=== PATIENT | male | born 1970 | race Caucasian/White ===

== ENCOUNTER 2019-10-07 09:32 | Day surgery (SDC) | payer BC, OTHER ==
--- NOTE | 2019-10-07 10:14 | EDM.PDOC ---
ED HPI GENERAL MEDICAL PROBLEM - General Chief Complaint: Abdominal Pain Stated Complaint: ABDOMINAL PAIN AND BLOATING Time Seen by Provider: 10/07/19 10:13 - History of Present Illness INITIAL COMMENTS - FREE TEXT/NARRATIVE: 49-year-old male presents the emergency room with abdominal pain. Patient states abdominal pain started this morning fairly severe it woke him up. He cannot recall the exact time. Patient has not had pain like this in the past the pain is mostly right lower quadrant. The patient had difficulty getting in and out of his work truck and determined he could not work so came to the emergency room. He does state that driving here every bump he had caused significant pain in the right lower quadrant. Patient has not had problems like this in the past. He denies fevers or chills. Patient states he has had loose stools for the last month. 1 or 2 daily. He has not noticed any blood. He takes no routine medications and has not been on any recent antibiotics. Right Lower Abdomen Pain Score (Numeric/FACES): 8 - Related Data Allergies Allergy/AdvReac Type Severity Reaction Status Date / Time No Known Allergies Allergy Verified 10/07/19 09:51 Home Meds: Home Meds . [No Known Home Meds] 10/07/19 [History] Past Medical History - Past Health History Medical/Surgical History: Denies Medical/Surgical History Social & Family History - Tobacco Use Smoking Status *Q: Never Smoker - Caffeine Use Caffeine Use: Reports: None ED ROS GENERAL - Review of Systems Review Of Systems: See Below Constitutional: Reports: No Symptoms. Denies: Fever, Chills HEENT: Reports: No Symptoms Respiratory: Reports: No Symptoms Cardiovascular: Reports: No Symptoms Endocrine: Reports: No Symptoms GI/Abdominal: Reports: Abdominal Pain, Diarrhea (1 or 2 loose stools daily for the last month). Denies: Anorexia, Black Stool, Bloody Stool : Reports: No Symptoms Musculoskeletal: Reports: No Symptoms Skin: Reports: No Symptoms Neurological: Reports: No Symptoms ED EXAM, GI/ABD - Physical Exam Exam: See Below Exam Limited By: No Limitations General Appearance: Alert, No Apparent Distress Head: Atraumatic, Normocephalic Neck: Normal Inspection, Supple, Non-Tender, Full Range of Motion Respiratory/Chest: No Respiratory Distress, Lungs Clear, Normal Breath Sounds Cardiovascular: Regular Rate, Rhythm, No Edema, No Murmur GI/Abdominal Exam: Normal Bowel Sounds, Soft, Rebound, Tender (With generalized palpation the patient has significant right lower quadrant discomfort with palpation over the left lower quadrant the patient still feels discomfort in the right lower quadrant. The patient has positive rebound tenderness.) (Male) Exam: No Hernia, Normal Inspection. No: Circumcised, Scrotum Tenderness (L), Scrotum Tenderness (R) Back Exam: Normal Inspection. No: CVA Tenderness (L), CVA Tenderness (R) Extremities: Normal Inspection, No Pedal Edema Neurological: Alert, Oriented, Normal Cognition Course - Vital Signs Last Recorded V/S: Last Vital Signs Temp 36.6 C 10/07/19 09:49 Pulse 90 10/07/19 09:49 Resp 18 10/07/19 09:49 BP 134/89 10/07/19 09:49 Pulse Ox 97 10/07/19 09:49 - Orders/Labs/Meds Orders: Active Orders 24 hr Category Date Time Status Patient Status [ADT] Routine ADT 10/07/19 14:24 Active Sodium Chloride 0.9% [Normal Saline] 1,000 ml Med 10/07/19 10:45 Active IV ASDIRECTED Sodium Chloride 0.9% [Saline Flush] Med 10/07/19 10:47 Active 10 ml FLUSH ONETIME PRN cefTRIAXone [Rocephin] 2 gm Med 10/07/19 12:00 Active Sodium Chloride 0.9% [Normal Saline] 100 ml IV Q24H Schedule Procedure [COMM] Stat Oth 10/07/19 14:25 Ordered Medication Orders Sodium Chloride (Normal Saline) 1,000 mls @ 150 mls/hr IV ASDIRECTED DWAINE Ceftriaxone Sodium 2 gm/ (Sodium Chloride) 100 mls @ 200 mls/hr IV Q24H DWAINE Last Admin: 10/07/19 12:23 Dose: 200 mls/hr Documented by: ELDA Sodium Chloride (Saline Flush) 10 ml FLUSH ONETIME PRN PRN Reason: IV FLUSH Last Admin: 10/07/19 10:57 Dose: 10 ml Documented by: JO ANN Labs: Laboratory Tests 10/07/19 10/07/19 10/07/19 Range/Units 10:15 10:15 10:30 WBC 11.09 H (4.23-9.07) K/mm3 RBC 5.49 (4.63-6.08) M/mm3 Hgb 16.0 (13.7-17.5) gm/dl Hct 45.2 (40.1-51.0) % MCV 82.3 (79.0-92.2) fl MCH 29.1 (25.7-32.2) pg MCHC 35.4 (32.2-35.5) g/dl RDW Std Deviation 41.9 (35.1-43.9) fL Plt Count 240 (163-337) K/mm3 MPV 9.9 (9.4-12.3) fl Neut % (Auto) 75.0 H (34.0-67.9) % Lymph % (Auto) 12.9 L (21.8-53.1) % [place] % (Auto) 11.2 (5.3-12.2) % Eos % (Auto) 0.4 L (0.8-7.0) Baso % (Auto) 0.3 (0.1-1.2) % Neut # (Auto) 8.33 H (1.78-5.38) K/mm3 Lymph # (Auto) 1.43 (1.32-3.57) K/mm3 [place] # (Auto) 1.24 H (0.30-0.82) K/mm3 Eos # (Auto) 0.04 (0.04-0.54) K/mm3 Baso # (Auto) 0.03 (0.01-0.08) K/mm3 Manual Slide Review Abnormal smear Sodium 139 (136-145) mEq/L Potassium 4.1 (3.5-5.1) mEq/L Chloride 103 (98-107) mEq/L Carbon Dioxide 28 (21-32) mEq/L Anion Gap 12.1 (5-15) BUN 26 H (7-18) mg/dL Creatinine 1.3 (0.7-1.3) mg/dL Est Cr Clr Drug Dosing 63.39 mL/min Estimated GFR (MDRD) 59 (>60) mL/min BUN/Creatinine Ratio 20.0 H (14-18) Glucose 101 (74-106) mg/dL Calcium 9.1 (8.5-10.1) mg/dL Total Bilirubin 1.2 H (0.2-1.0) mg/dL AST 29 (15-37) U/L ALT 56 (16-63) U/L Alkaline Phosphatase 60 (46-116) U/L Total Protein 7.4 (6.4-8.2) g/dl Albumin 4.0 (3.4-5.0) g/dl Globulin 3.4 gm/dL Albumin/Globulin Ratio 1.2 (1-2) Lipase 70 L (73-393) U/L Urine Color Yellow (Yellow) Urine Appearance Clear (Clear) Urine pH 5.5 (5.0-8.0) Ur Specific [place] > or = 1.030 (1.005-1.030) Urine Protein Negative (Negative) Urine Glucose (UA) Negative (Negative) Urine Ketones Negative (Negative) Urine Occult Blood Negative (Negative) Urine Nitrite Negative (Negative) Urine Bilirubin Negative (Negative) Urine Urobilinogen 0.2 (0.2-1.0) Ur Leukocyte Esterase Negative (Negative) SARS Virus RNA (PCR) (NEGATIVE) 10/07/19 Range/Units 12:45 WBC (4.23-9.07) K/mm3 RBC (4.63-6.08) M/mm3 Hgb (13.7-17.5) gm/dl Hct (40.1-51.0) % MCV (79.0-92.2) fl MCH (25.7-32.2) pg MCHC (32.2-35.5) g/dl RDW Std Deviation (35.1-43.9) fL Plt Count (163-337) K/mm3 MPV (9.4-12.3) fl Neut % (Auto) (34.0-67.9) % Lymph % (Auto) (21.8-53.1) % [place] % (Auto) (5.3-12.2) % Eos % (Auto) (0.8-7.0) Baso % (Auto) (0.1-1.2) % Neut # (Auto) (1.78-5.38) K/mm3 Lymph # (Auto) (1.32-3.57) K/mm3 [place] # (Auto) (0.30-0.82) K/mm3 Eos # (Auto) (0.04-0.54) K/mm3 Baso # (Auto) (0.01-0.08) K/mm3 Manual Slide Review Sodium (136-145) mEq/L Potassium (3.5-5.1) mEq/L Chloride (98-107) mEq/L Carbon Dioxide (21-32) mEq/L Anion Gap (5-15) BUN (7-18) mg/dL Creatinine (0.7-1.3) mg/dL Est Cr Clr Drug Dosing mL/min Estimated GFR (MDRD) (>60) mL/min BUN/Creatinine Ratio (14-18) Glucose (74-106) mg/dL Calcium (8.5-10.1) mg/dL Total Bilirubin (0.2-1.0) mg/dL AST (15-37) U/L ALT (16-63) U/L Alkaline Phosphatase (46-116) U/L Total Protein (6.4-8.2) g/dl Albumin (3.4-5.0) g/dl Globulin gm/dL Albumin/Globulin Ratio (1-2) Lipase (73-393) U/L Urine Color (Yellow) Urine Appearance (Clear) Urine pH (5.0-8.0) Ur Specific [place] (1.005-1.030) Urine Protein (Negative) Urine Glucose (UA) (Negative) Urine Ketones (Negative) Urine Occult Blood (Negative) Urine Nitrite (Negative) Urine Bilirubin (Negative) Urine Urobilinogen (0.2-1.0) Ur Leukocyte Esterase (Negative) SARS Virus RNA (PCR) Negative (NEGATIVE) Meds: Medications Generic Name Dose Route Start Last Admin Trade Name Freq PRN Reason Stop Dose Admin Sodium Chloride 1,000 mls @ 150 mls/hr 10/07/19 10:45 Normal Saline IV ASDIRECTED DWAINE Ceftriaxone Sodium 2 gm/ 100 mls @ 200 mls/hr 10/07/19 12:00 10/07/19 12:23 Sodium Chloride IV 200 mls/hr Q24H DWAINE Administration Sodium Chloride 10 ml 10/07/19 10:47 10/07/19 10:57 Saline Flush FLUSH 10 ml ONETIME PRN Administration IV FLUSH Discontinued Medications Generic Name Dose Route Start Last Admin Trade Name Freq PRN Reason Stop Dose Admin Bupivacaine HCl/Epinephrine Bitart Confirm 10/07/19 13:57 Marcaine 0.5%/Epinephrine 1:200,000 Administered 10/07/19 13:58 Dose 50 ml .ROUTE .STK-MED ONE Fentanyl Confirm 10/07/19 14:32 Sublimaze Administered 10/07/19 14:33 Dose 250 mcg .ROUTE .STK-MED ONE Hydromorphone HCl 0.5 mg 10/07/19 13:19 10/07/19 13:37 Dilaudid IVPUSH 10/07/19 13:20 0.5 mg ONETIME ONE Administration Sodium Chloride 500 mls @ 999 mls/hr 10/07/19 10:36 10/07/19 11:26 Normal Saline IV 10/07/19 11:06 999 mls/hr .BOLUS ONE Administration Metronidazole 500 mg/ Premix 100 mls @ 100 mls/hr 10/07/19 11:55 10/07/19 13:15 IV 10/07/19 12:54 100 mls/hr ONETIME ONE Administration Lidocaine HCl Confirm 10/07/19 14:32 Xylocaine-Mpf 1% Administered 10/07/19 14:33 Dose 4 mls @ as directed .ROUTE .STK-MED ONE Iopamidol 50 ml 10/07/19 10:47 10/07/19 10:57 Isovue-300 (61%) IVPUSH 10/07/19 10:48 50 ml ONETIME ONE Administration Iopamidol 100 ml 10/07/19 10:47 10/07/19 10:57 Isovue-300 (61%) IVPUSH 10/07/19 10:48 100 ml ONETIME ONE Administration Lidocaine/Epinephrine Confirm 10/07/19 13:56 Xylocaine 1% With Epinephrine 1:100,000 Administered 10/07/19 13:57 Dose 40 ml .ROUTE .STK-MED ONE Midazolam HCl Confirm 10/07/19 14:32 Versed 1 Mg/Ml Administered 10/07/19 14:33 Dose 2 mg .ROUTE .STK-MED ONE Ondansetron HCl Confirm 10/07/19 14:31 Zofran Administered 10/07/19 14:32 Dose 4 mg .ROUTE .STK-MED ONE Propofol Confirm 10/07/19 14:32 Diprivan 20 Ml Administered 10/07/19 14:33 Dose 200 mg .ROUTE .STK-MED ONE Rocuronium [place] Confirm 10/07/19 14:31 Zemuron Administered 10/07/19 14:32 Dose 50 mg .ROUTE .STK-MED ONE - Re-Assessments/Exams Free Text/Narrative Re-Assessment/Exam: 10/07/19 11:[address] is suggestive of a very early appendicitis. I called Dr. Chu who is in surgery but will be able to return my call in approximately 30 minutes. 10/07/19 11:[address] Chu, will anticipate surgery around 3 PM will start Rocephin 2 g and Flagyl 500 mg IV in addition to IV fluids Departure - Departure Time of Disposition: 13:00 Disposition: DC/Tfer to [facility] Clinical Impression: Appendicitis - Discharge Information Sepsis Event Note (ED) - Evaluation Sepsis Screening Result: No Definite Risk - Focused Exam Vital Signs: Vital Signs Temp Pulse Resp BP Pulse Ox 10/07/19 09:49 36.6 C 90 18 134/89 97 - My Orders Last 24 Hours: My Active Orders 10/07/19 10:45 Sodium Chloride 0.9% [Normal Saline] 1,000 ml IV ASDIRECTED 10/07/19 10:47 Sodium Chloride 0.9% [Saline Flush] 10 ml FLUSH ONETIME PRN 10/07/19 12:00 cefTRIAXone [Rocephin] 2 gm Sodium Chloride 0.9% [Normal Saline] 100 ml IV Q24H - Assessment/Plan Last 24 Hours: My Active Orders 10/07/19 10:45 Sodium Chloride 0.9% [Normal Saline] 1,000 ml IV ASDIRECTED 10/07/19 10:47 Sodium Chloride 0.9% [Saline Flush] 10 ml FLUSH ONETIME PRN 10/07/19 12:00 cefTRIAXone [Rocephin] 2 gm Sodium Chloride 0.9% [Normal Saline] 100 ml IV Q24H
[2019-10-07] MEDS ORDERED: Sodium Chloride 0.9% 500 ML IV ONE (10:36)
[2019-10-07] MEDS ORDERED: Sodium Chloride 0.9% 1,000 ML IV SCH (10:45)
[2019-10-07] MEDS ORDERED: Sodium Chloride 0.9% 10 ML Syringe FLUSH PRN (10:47)
[2019-10-07] MEDS ORDERED: Iopamidol 612 MG/ML 50 ML SDV IVPUSH ONE (10:47)
[2019-10-07] MEDS ORDERED: Iopamidol 612 MG/ML 100 ML Bottle IVPUSH ONE (10:47)
--- NOTE | 2019-10-07 11:16 | CT ---
CT abdomen and pelvis Technique: Multiple axial sections were obtained from above the dome of the diaphragm inferiorly through the pubic symphysis. Intravenous contrast was utilized. No oral contrast has been given. Delayed images were obtained to the bladder. Findings: Visualized lung bases show nothing acute. Liver contains no focal parenchymal abnormality. Gallbladder contains no calcified gallstones. Spleen appears normal. Adrenal glands show no nodule. Pancreas is within normal limits. Kidney show symmetric contrast enhancement without hydronephrosis or mass. Aorta shows no aneurysm. No retroperitoneal adenopathy or mesenteric abnormalities are seen. Appendix shows a small calcified appendicolith at the base. Appendix shows some slight wall enhancement with minimal surrounding inflammatory change. No pelvic mass or adenopathy is seen. No free fluid is seen. Delayed images shows contrast within the distal ureters and within the bladder. Bone window settings were reviewed which appear within normal limits for the patient's age. Old fracture is noted within the articular mass at L3 on both sides. Impression: 1. Slightly abnormal appendix suggesting very early appendicitis. Please correlate if this matches patient's clinical and laboratory findings. 2. Other findings as noted above. 3. No additional acute abnormality is appreciated on CT study of the abdomen and pelvis. Diagnostic code #5 This report was dictated in MDT
[2019-10-07] MEDS ORDERED: metroNIDAZOLE/Normal Saline 500 MG in Premix Bag 1 BAG IV ONE (11:55)
[2019-10-07] MEDS ORDERED: cefTRIAXone 2 GM in Sodium Chloride 0.9% 100 ML IV SCH (12:00)
--- NOTE | 2019-10-07 13:03 | PCM.PREANE ---
Preanesthetic Assessment - Procedure Proposed Procedure: laparoscopic appendectomy - Anesthesia/Transfusion/Family Hx Anesthesia History: Prior Anesthesia Without Reaction Family History of Anesthesia Reaction: No Transfusion History: No Prior Transfusion(s) - Review of Systems General: Fatigue, Malaise Pulmonary: No Symptoms Cardiovascular: No Symptoms Gastrointestinal: Abdominal Pain (RLQ) Neurological: No Symptoms Other: Reports: None - Physical Assessment NPO Status Date: 10/06/19 NPO Status Time: 18:00 Vital Signs: Last Vital Signs Temp 36.6 C 10/07/19 09:49 Pulse 90 10/07/19 09:49 Resp 18 10/07/19 09:49 BP 134/89 10/07/19 09:49 Pulse Ox 97 10/07/19 09:49 Height: 1.68 m Weight: 99.79 kg ASA Class: 2 Mental Status: Alert & Oriented x3 Dentition: Reports: Dentures Thyro-Mental Finger Breadths: 2 Mouth Opening Finger Breadths: 2 ROM/Head Extension: Full Lungs: Clear to Auscultation, Normal Respiratory Effort Cardiovascular: Regular Rate, Regular Rhythm - Lab Values: Laboratory Last Values WBC 11.09 K/mm3 (4.23-9.07) H 10/07/19 10:15 RBC 5.49 M/mm3 (4.63-6.08) 10/07/19 10:15 Hgb 16.0 gm/dl (13.7-17.5) 10/07/19 10:15 Hct 45.2 % (40.1-51.0) 10/07/19 10:15 MCV 82.3 fl (79.0-92.2) 10/07/19 10:15 MCH 29.1 pg (25.7-32.2) 10/07/19 10:15 MCHC 35.4 g/dl (32.2-35.5) 10/07/19 10:15 RDW Std Deviation 41.9 fL (35.1-43.9) 10/07/19 10:15 Plt Count 240 K/mm3 (163-337) 10/07/19 10:15 MPV 9.9 fl (9.4-12.3) 10/07/19 10:15 Neut % (Auto) 75.0 % (34.0-67.9) H 10/07/19 10:15 Lymph % (Auto) 12.9 % (21.8-53.1) L 10/07/19 10:15 [place] % (Auto) 11.2 % (5.3-12.2) 10/07/19 10:15 Eos % (Auto) 0.4 (0.8-7.0) L 10/07/19 10:15 Baso % (Auto) 0.3 % (0.1-1.2) 10/07/19 10:15 Neut # (Auto) 8.33 K/mm3 (1.78-5.38) H 10/07/19 10:15 Lymph # (Auto) 1.43 K/mm3 (1.32-3.57) 10/07/19 10:15 [place] # (Auto) 1.24 K/mm3 (0.30-0.82) H 10/07/19 10:15 Eos # (Auto) 0.04 K/mm3 (0.04-0.54) 10/07/19 10:15 Baso # (Auto) 0.03 K/mm3 (0.01-0.08) 10/07/19 10:15 Manual Slide Review Abnormal smear 10/07/19 10:15 Sodium 139 mEq/L (136-145) 10/07/19 10:15 Potassium 4.1 mEq/L (3.5-5.1) 10/07/19 10:15 Chloride 103 mEq/L (98-107) 10/07/19 10:15 Carbon Dioxide 28 mEq/L (21-32) 10/07/19 10:15 Anion Gap 12.1 (5-15) 10/07/19 10:15 BUN 26 mg/dL (7-18) H 10/07/19 10:15 Creatinine 1.3 mg/dL (0.7-1.3) 10/07/19 10:15 Est Cr Clr Drug Dosing 63.39 mL/min 10/07/19 10:15 Estimated GFR (MDRD) 59 mL/min (>60) 10/07/19 10:15 BUN/Creatinine Ratio 20.0 (14-18) H 10/07/19 10:15 Glucose 101 mg/dL (74-106) 10/07/19 10:15 Calcium 9.1 mg/dL (8.5-10.1) 10/07/19 10:15 Total Bilirubin 1.2 mg/dL (0.2-1.0) H 10/07/19 10:15 AST 29 U/L (15-37) 10/07/19 10:15 ALT 56 U/L (16-63) 10/07/19 10:15 Alkaline Phosphatase 60 U/L (46-116) 10/07/19 10:15 Total Protein 7.4 g/dl (6.4-8.2) 10/07/19 10:15 Albumin 4.0 g/dl (3.4-5.0) 10/07/19 10:15 Globulin 3.4 gm/dL 10/07/19 10:15 Albumin/Globulin Ratio 1.2 (1-2) 10/07/19 10:15 Lipase 70 U/L (73-393) L 10/07/19 10:15 Urine Color Yellow (Yellow) 10/07/19 10:30 Urine Appearance Clear (Clear) 10/07/19 10:30 Urine pH 5.5 (5.0-8.0) 10/07/19 10:30 Ur Specific [place] > or = 1.030 (1.005-1.030) 10/07/19 10:30 Urine Protein Negative (Negative) 10/07/19 10:30 Urine Glucose (UA) Negative (Negative) 10/07/19 10:30 Urine Ketones Negative (Negative) 10/07/19 10:30 Urine Occult Blood Negative (Negative) 10/07/19 10:30 Urine Nitrite Negative (Negative) 10/07/19 10:30 Urine Bilirubin Negative (Negative) 10/07/19 10:30 Urine Urobilinogen 0.2 (0.2-1.0) 10/07/19 10:30 Ur Leukocyte Esterase Negative (Negative) 10/07/19 10:30 - Allergies Allergies/Adverse Reactions: Allergies Allergy/AdvReac Type Severity Reaction Status Date / Time No Known Allergies Allergy Verified 10/07/19 09:51 - Blood Blood Available: No Product(s) Available: None - Anesthesia Plan Pre-Op Medication Ordered: None - Acknowledgements Anesthesia Type Planned: General Anesthesia Pt an Appropriate Candidate for the Planned Anesthesia: Yes Alternatives and Risks of Anesthesia Discussed w Pt/Guardian: Yes Pt/Guardian Understands and Agrees with Anesthesia Plan: Yes PreAnesthesia Questionnaire - Past Health History Medical/Surgical History: Denies Medical/Surgical History - SUBSTANCE USE Smoking Status *Q: Never Smoker Tobacco Use Within Last Twelve Months: No Second Hand Smoke Exposure: No Days Per Week of Alcohol Use: 0 Number of Drinks Per Day: 0 Total Drinks Per Week: 0 Recreational Drug Use History: No - HOME MEDS Home Medications: Home Meds . [No Known Home Meds] 10/07/19 [History] - CURRENT (IN HOUSE) MEDS Current Meds: Current Medications Sodium Chloride (Normal Saline) 1,000 mls @ 150 mls/hr IV ASDIRECTED [facility] Ceftriaxone Sodium 2 gm/ (Sodium Chloride) 100 mls @ 200 mls/hr IV Q24H DWAINE Last Admin: 10/07/19 12:23 Dose: 200 mls/hr Documented by: Sodium Chloride (Saline Flush) 10 ml FLUSH ONETIME PRN PRN Reason: IV FLUSH Last Admin: 10/07/19 10:57 Dose: 10 ml Documented by: Discontinued Medications Sodium Chloride (Normal Saline) 500 mls @ 999 mls/hr IV .BOLUS ONE Stop: 10/07/19 11:06 Last Admin: 10/07/19 11:26 Dose: 999 mls/hr Documented by: Metronidazole 500 mg/ Premix 100 mls @ 100 mls/hr IV ONETIME ONE Stop: 10/07/19 12:54 Iopamidol (Isovue-300 (61%)) 50 ml IVPUSH ONETIME ONE Stop: 10/07/19 10:48 Last Admin: 10/07/19 10:57 Dose: 50 ml Documented by: Iopamidol (Isovue-300 (61%)) 100 ml IVPUSH ONETIME ONE Stop: 10/07/19 10:48 Last Admin: 10/07/19 10:57 Dose: 100 ml Documented by:
[2019-10-07] MEDS ORDERED: HYDROmorphone 0.5 MG/0.5 ML Syringe IVPUSH ONE (13:19)
[2019-10-07] MEDS ORDERED: Lidocaine 1% with EPINEPHrine 1:100,000 20 ML MDV ONE (13:56)
[2019-10-07] MEDS ORDERED: Bupivacaine 0.5%/EPINEPHrine 1:200,000 50 ML MDV ONE (13:57)
[2019-10-07] MEDS ORDERED: Ondansetron 4 MG/2 ML SDV ONE (14:31)
[2019-10-07] MEDS ORDERED: Rocuronium 50 MG/5 ML Vial ONE (14:31)
[2019-10-07] MEDS ORDERED: Propofol 200 MG/20 ML SDV ONE (14:32)
[2019-10-07] MEDS ORDERED: Lidocaine 1% 4 ML ONE (14:32)
[2019-10-07] MEDS ORDERED: Midazolam 1 MG/ML 2 ML SDV ONE (14:32)
[2019-10-07] MEDS ORDERED: fentaNYL 250 MCG/5 ML SDV ONE ×2 (14:32→15:46)
[2019-10-07] MEDS ORDERED: HYDROmorphone 0.5 MG/0.5 ML Syringe ONE ×2 (15:35)
[2019-10-07] MEDS ORDERED: Lactated Ringers 1,000 ML ONE (16:01)
--- NOTE | 2019-10-07 16:19 | PCM.OPNOTE ---
- General Post-Op/Procedure Note Date of Surgery/Procedure: 10/07/19 Operative Procedure(s): Laparoscopic appendectomy Findings: acute appendicitis Pre Op Diagnosis: acute appendicitis Post-Op Diagnosis: same Anesthesia Technique: General ET Tube Primary Surgeon: Sruthi Griffith Anesthesia Provider: Darryn Garces Pathology: appendix Fluid Replacement, Intraop: 1,200 Output, Urine Amount: 0 EBL in mLs: 5 Complications: none apparent Condition: Good
--- NOTE | 2019-10-07 16:24 | PCM.HP.2 ---
H&P History of Present Illness - General Date of Service: 10/07/19 Admit Problem/Dx: Admission Diagnosis/Problem Admission Diagnosis/Problem Appendectomy Source of Information: Patient, Provider History Limitations: Reports: No Limitations - History of Present Illness Initial Comments - Free Text/Narative: The patient is a 49-year-old male presents to emergency department complaining of right lower quadrant pain for 1 day. Reports noting the pain this morning. He thought he had a pulled muscle, but realized that the pain is not emanating from the groin. In addition when the pain did not subside, he knew that he needed to seek treatment. He reports decreased appetite. He has had diarrhea recently from dietary changes. He has not noticed any hematochezia or melena. In the emergency department the patient had laboratory evaluation which revealed WBC 11K, as well as a CT abdomen pelvis which showed inflammation around the appendix as well as an appendicolith. Right Lower Abdomen Pain Score (Numeric/FACES): 8 - Related Data Allergies/Adverse Reactions: Allergies Allergy/AdvReac Type Severity Reaction Status Date / Time No Known Allergies Allergy Verified 10/07/19 09:51 Home Medications: Home Meds . [No Known Home Meds] 10/07/19 [History] Past Medical History - Past Health History Medical/Surgical History: Denies Medical/Surgical History Social & Family History - Family History Cardiac: Reports: High Cholesterol, Hypertension, PA Oncologic: Denies: Colon - Tobacco Use Smoking Status *Q: Never Smoker Second Hand Smoke Exposure: No - Caffeine Use Caffeine Use: Reports: None - Alcohol Use Days Per Week of Alcohol Use: 0 Number of Drinks Per Day: 0 Total Drinks Per Week: 0 - Recreational Drug Use Recreational Drug Use: No H&P Review of Systems - Review of Systems: Review Of Systems: See Below General: Reports: Decreased Appetite HEENT: Reports: No Symptoms Pulmonary: Reports: No Symptoms Cardiovascular: Reports: No Symptoms Gastrointestinal: Reports: Abdominal Pain Genitourinary: Reports: No Symptoms Musculoskeletal: Reports: No Symptoms Skin: Reports: No Symptoms Neurological: Reports: No Symptoms Hematologic/Lymphatic: Reports: No Symptoms Exam - Exam Exam: See Below - Vital Signs Vital Signs: Last Vital Signs Temp 36.6 C 10/07/19 09:49 Pulse 90 10/07/19 09:49 Resp 18 10/07/19 09:49 BP 134/89 10/07/19 09:49 Pulse Ox 97 10/07/19 09:49 Weight: 99.79 kg - Exam Quality Assessment: No: Supplemental Oxygen General: Alert, Oriented HEENT: Conjunctiva Clear, EOMI Neck: Supple Lungs: Normal Respiratory Effort Cardiovascular: Regular Rate, Regular Rhythm GI/Abdominal Exam: Soft, No Distention, Guarding (Isolated in the right lower quadrant), Rebound (And right lower quadrant) - Patient Data Lab Results Last 24 hrs: Laboratory Results - last 24 hr 10/07/19 10/07/19 10/07/19 Range/Units 10:15 10:15 10:30 WBC 11.09 H (4.23-9.07) K/mm3 RBC 5.49 (4.63-6.08) M/mm3 Hgb 16.0 (13.7-17.5) gm/dl Hct 45.2 (40.1-51.0) % MCV 82.3 (79.0-92.2) fl MCH 29.1 (25.7-32.2) pg MCHC 35.4 (32.2-35.5) g/dl RDW Std Deviation 41.9 (35.1-43.9) fL Plt Count 240 (163-337) K/mm3 MPV 9.9 (9.4-12.3) fl Neut % (Auto) 75.0 H (34.0-67.9) % Lymph % (Auto) 12.9 L (21.8-53.1) % Dorado % (Auto) 11.2 (5.3-12.2) % Eos % (Auto) 0.4 L (0.8-7.0) Baso % (Auto) 0.3 (0.1-1.2) % Neut # (Auto) 8.33 H (1.78-5.38) K/mm3 Lymph # (Auto) 1.43 (1.32-3.57) K/mm3 Dorado # (Auto) 1.24 H (0.30-0.82) K/mm3 Eos # (Auto) 0.04 (0.04-0.54) K/mm3 Baso # (Auto) 0.03 (0.01-0.08) K/mm3 Manual Slide Review Abnormal smear Sodium 139 (136-145) mEq/L Potassium 4.1 (3.5-5.1) mEq/L Chloride 103 (98-107) mEq/L Carbon Dioxide 28 (21-32) mEq/L Anion Gap 12.1 (5-15) BUN 26 H (7-18) mg/dL Creatinine 1.3 (0.7-1.3) mg/dL Est Cr Clr Drug Dosing 63.39 mL/min Estimated GFR (MDRD) 59 (>60) mL/min BUN/Creatinine Ratio 20.0 H (14-18) Glucose 101 (74-106) mg/dL Calcium 9.1 (8.5-10.1) mg/dL Total Bilirubin 1.2 H (0.2-1.0) mg/dL AST 29 (15-37) U/L ALT 56 (16-63) U/L Alkaline Phosphatase 60 (46-116) U/L Total Protein 7.4 (6.4-8.2) g/dl Albumin 4.0 (3.4-5.0) g/dl Globulin 3.4 gm/dL Albumin/Globulin Ratio 1.2 (1-2) Lipase 70 L (73-393) U/L Urine Color Yellow (Yellow) Urine Appearance Clear (Clear) Urine pH 5.5 (5.0-8.0) Ur Specific Strong > or = 1.030 (1.005-1.030) Urine Protein Negative (Negative) Urine Glucose (UA) Negative (Negative) Urine Ketones Negative (Negative) Urine Occult Blood Negative (Negative) Urine Nitrite Negative (Negative) Urine Bilirubin Negative (Negative) Urine Urobilinogen 0.2 (0.2-1.0) Ur Leukocyte Esterase Negative (Negative) SARS Virus RNA (PCR) (NEGATIVE) 10/07/19 Range/Units 12:45 WBC (4.23-9.07) K/mm3 RBC (4.63-6.08) M/mm3 Hgb (13.7-17.5) gm/dl Hct (40.1-51.0) % MCV (79.0-92.2) fl MCH (25.7-32.2) pg MCHC (32.2-35.5) g/dl RDW Std Deviation (35.1-43.9) fL Plt Count (163-337) K/mm3 MPV (9.4-12.3) fl Neut % (Auto) (34.0-67.9) % Lymph % (Auto) (21.8-53.1) % Dorado % (Auto) (5.3-12.2) % Eos % (Auto) (0.8-7.0) Baso % (Auto) (0.1-1.2) % Neut # (Auto) (1.78-5.38) K/mm3 Lymph # (Auto) (1.32-3.57) K/mm3 Dorado # (Auto) (0.30-0.82) K/mm3 Eos # (Auto) (0.04-0.54) K/mm3 Baso # (Auto) (0.01-0.08) K/mm3 Manual Slide Review Sodium (136-145) mEq/L Potassium (3.5-5.1) mEq/L Chloride (98-107) mEq/L Carbon Dioxide (21-32) mEq/L Anion Gap (5-15) BUN (7-18) mg/dL Creatinine (0.7-1.3) mg/dL Est Cr Clr Drug Dosing mL/min Estimated GFR (MDRD) (>60) mL/min BUN/Creatinine Ratio (14-18) Glucose (74-106) mg/dL Calcium (8.5-10.1) mg/dL Total Bilirubin (0.2-1.0) mg/dL AST (15-37) U/L ALT (16-63) U/L Alkaline Phosphatase (46-116) U/L Total Protein (6.4-8.2) g/dl Albumin (3.4-5.0) g/dl Globulin gm/dL Albumin/Globulin Ratio (1-2) Lipase (73-393) U/L Urine Color (Yellow) Urine Appearance (Clear) Urine pH (5.0-8.0) Ur Specific Strong (1.005-1.030) Urine Protein (Negative) Urine Glucose (UA) (Negative) Urine Ketones (Negative) Urine Occult Blood (Negative) Urine Nitrite (Negative) Urine Bilirubin (Negative) Urine Urobilinogen (0.2-1.0) Ur Leukocyte Esterase (Negative) SARS Virus RNA (PCR) Negative (NEGATIVE) Result Diagrams: 10/07/19 10:15 10/07/19 10:15 Sepsis Event Note - Evaluation Sepsis Screening Result: No Definite Risk - Focused Exam Vital Signs: Vital Signs Temp Pulse Resp BP Pulse Ox 10/07/19 09:49 36.6 C 90 18 134/89 97 Date Exam was Performed: 10/07/19 Time Exam was Performed: 16:31 *Q Meaningful Use (ADM) - VTE Risk Assess *Q Each Risk Factor Represents 1 Point: Age 41 - 59 years, Minor Surgery Planned Total Score 1 Point Risk Factors: 2 - Problem List (1) Appendicitis SNOMED Code(s): 70749732 ICD Code: K37 - UNSPECIFIED APPENDICITIS Status: Acute Current Visit: Yes Qualifiers: Appendicitis type: acute appendicitis Acute appendicitis type: with localized peritonitis Appendicitis gangrene presence: unspecified whether gangrene present Appendicitis perforation presence: without perforation Appendicitis abscess presence: without abscess Qualified Code(s): K35.30 - Acute appendicitis with localized peritonitis, without perforation or gangrene Problem List Initiated/Reviewed/Updated: Yes Orders Last 24hrs: Active Orders 24 hr Category Date Time Status Patient Status [ADT] Routine ADT 10/07/19 14:24 Active Sodium Chloride 0.9% [Normal Saline] 1,000 ml Med 10/07/19 10:45 Active IV ASDIRECTED Sodium Chloride 0.9% [Saline Flush] Med 10/07/19 10:47 Active 10 ml FLUSH ONETIME PRN cefTRIAXone [Rocephin] 2 gm Med 10/07/19 12:00 Active Sodium Chloride 0.9% [Normal Saline] 100 ml IV Q24H Schedule Procedure [COMM] Stat Oth 10/07/19 14:25 Ordered Medication Orders Sodium Chloride (Normal Saline) 1,000 mls @ 150 mls/hr IV ASDIRECTED [facility] Ceftriaxone Sodium 2 gm/ (Sodium Chloride) 100 mls @ 200 mls/hr IV Q24H [facility] Last Admin: 10/07/19 12:23 Dose: 200 mls/hr Documented by: ELDA Sodium Chloride (Saline Flush) 10 ml FLUSH ONETIME PRN PRN Reason: IV FLUSH Last Admin: 10/07/19 10:57 Dose: 10 ml Documented by: JO ANN Assessment/Plan Comment:: The patient is a 49-year-old male with acute appendicitis - Plan for laparoscopic appendectomy, possible conversion to open. Discussed risk of bleeding, infection, abscess formation, and injury to surrounding structures. His written consent was obtained - N.p.o -IV fluid resuscitation -IV antibiotics with metronidazole 500 mg and ceftriaxone 2 g We will assess need for inpatient stay based on intraoperative findings Sruthi Griffith MD General Surgery
--- NOTE | 2019-10-07 16:42 | PCM.PRNOTE ---
- Free Text/Narrative Note: Operative Report Date of surgery: October 07, 2019 Preoperative diagnosis: acute appendicitis. Postoperative diagnosis: same Procedure performed: laparoscopic appendectomy Surgeon: Dr. Sruthi Griffith Anesthesia: General Drophammer Operator: Darryn Garces CRNA Estimated blood loss [5 mL] IV fluids: 1200 mL Urine output: 0 Drains and lines: 0 Findings: Acute appendicitis Pathology: Appendix Indications for procedure: The patient is a 49-year-old woman who presented to the emergency department with acute onset of right lower quadrant abdominal pain. He had subsequent work-up that revealed acute appendicitis. He was consulted for a laparoscopic appendectomy, we discussed surgery with risks of bleeding, infection, conversion to open, and injury to surrounding bowel. His written consent was obtained Description of procedure: The patient was taken back to the operating room and placed in supine position on the operating table. SCD boots were in place and functional prior to the start of the procedure. Preoperative antibiotics were administered in the emergency department. The patient had successful induction of general anesthesia and was intubated without difficulty. Pt was then prepped and draped in standard surgical fashion and a timeout was performed. We began by making a 15 mm incision in the infraumbilical skin and deepened down to level of the fascia which was then grasped and incised sharply. We entered the peritoneum and then placed stay sutures of 0 Vicryl on the fascial edges. A 12 mm Lambert port was then placed into the umbilicus and the balloon was inflated. The abdomen was insufflated to 15 mmHg a 5 mm camera was inserted. There was no evidence of any injury created from entry into the abdomen. A TA P block was performed using mixed 1% lidocaine with epinephrine and 0.5% bupivacaine with epinephrine . We then proceeded to place a 5 mm port under direct visualization in the suprapubic midline and an additional 5mm port in the left lower quadrant. The patient was then positioned in Trendelenburg with right side elevated and we proceeded to mobilize the appendix. The appendix was adherent to the lateral abdominal wall. There were also adhesions between the cecum and the abdominal wall. We proceeded to mobilize the appendix and cecum using a LigaSure device. The LigaSure was then used to take the mesoappendix. The appendix was then taken with a tissue staple load. The specimen was in place in the Endo Catch bag. We then inspected the area. A Ray-Laurie was used to blot up blood and fluid in the area. There was some oozing at the site of the dissection from the abdominal wall. The LigaSure was used to create hemostasis and to additionally seal the mesoappendix. There was no active bleeding at the end of this case. The Ray-Laurie's were removed. the abdomen was then desufflated and the umbilical fascia closed with 0 Vicryl sutures and the stay sutures were tied, effectively closing the umbilical port site. The skin was then reapproximated at all port sites using a 4-0 Monocryl subcutaneous stitch and covered with Dermabond surgical glue. The patient tolerated the procedure. He was extubated and transported to the PACU in stable condition. All sponge and needle counts were correct. I was present and scrubbed for the entirety of the procedure. Sruthi Griffith MD General Surgery
[2019-10-07] MEDS ORDERED: Labetalol 100 MG/20 ML MDV ONE (17:00)
[2019-10-07] MEDS ORDERED: fentaNYL 100 MCG/2 ML SDV IVPUSH PRN (17:05)
--- NOTE | 2019-10-07 17:06 | PCM.POSTAN ---
POST ANESTHESIA ASSESSMENT - MENTAL STATUS Mental Status: Alert, Oriented - VITAL SIGNS Vital Signs: Last Vital Signs Temp 36.6 C 10/07/19 09:49 Pulse 90 10/07/19 09:49 Resp 18 10/07/19 09:49 BP 134/89 10/07/19 09:49 Pulse Ox 97 10/07/19 09:49 - RESPIRATORY Respiratory Status: Respiratory Rate WNL, Airway Patent, O2 Saturation Stable, Supplemental Oxygen - CARDIOVASCULAR CV Status: Pulse Rate WNL, Blood Pressure Stable - GASTROINTESTINAL GI Status: No Symptoms - PAIN Pain Score: 0 - POST OP HYDRATION Hydration Status: Adequate & Stable - OBSERVATIONS Free Text/Narrative:: no anesthesia complications noted
--- NOTE | 2019-10-08 00:07 | PCM48HPAN ---
Post Anesthesia Note - EVALUATION WITHIN 48HRS OF ANESTHETIC Vital Signs in Normal Range: Yes Patient Participated in Evaluation: No (per RN) Respiratory Function Stable: Yes Airway Patent: Yes Cardiovascular Function Stable: Yes Hydration Status Stable: Yes Pain Control Satisfactory: Yes Nausea and Vomiting Control Satisfactory: Yes Mental Status Recovered: Yes Vital Signs: Last Vital Signs Temp 37.0 C 10/07/19 18:10 Pulse 90 10/07/19 09:49 Resp 16 10/07/19 18:10 BP 122/66 10/07/19 18:10 Pulse Ox 93 L 10/07/19 18:10 - COMMENTS/OBSERVATIONS Free Text/Narrative:: no anesthesia complications noted
== END 2019-10-07 18:19 | disposition home or self-care (01) ==
LOC: JD.ED 09:32 → JD.SDS 12:22
PROVIDERS: ATTEND Surgery
DX: K35.33 Acute appendicitis with perforation, localized peritonitis, and gangrene, with abscess (principal); Z11.59 Encounter for screening for other viral diseases
CPT/HCPCS: 36415; 44970; 74177; 80053; 81003; 83690; 85025; 87635; 96361; 96365; 96367; 96375; 99285; J0696; J1170; J2001; J2250; J2405; J2704; J3010; J3490; J7030; J7050; J7120; Q9967; 00840; U0002